=== PATIENT | female | born 1950 | race Caucasian/White ===

== ENCOUNTER 2021-09-24 13:31 | Outpatient (CLI) | payer MEDICARE, BC, SELFPAY | END 2021-09-24 13:32 | disposition home or self-care (01) | PROVIDERS: PCP Internal Medicine; Visit Provider Family Medicine | DX: M54.16 Radiculopathy, lumbar region (principal); M51.36 Other intervertebral disc degeneration, lumbar region | CPT/HCPCS: 62323; Q9966 ==

== ENCOUNTER 2022-12-23 10:52 | Outpatient (CLI) | payer MEDICARE, BC, SELFPAY | END 2022-12-23 10:53 | disposition home or self-care (01) | LOC: INJ CL 10:53 | PROVIDERS: PCP Internal Medicine; Visit Provider Family Medicine | DX: M17.11 Unilateral primary osteoarthritis, right knee (principal); M25.561 Pain in right knee | CPT/HCPCS: 64454 ==

== ENCOUNTER 2023-01-06 13:10 | Outpatient (CLI) | payer MEDICARE, BC, SELFPAY | END 2023-01-06 13:11 | disposition home or self-care (01) | LOC: INJ CL 13:10 | PROVIDERS: PCP Internal Medicine; Visit Provider Family Medicine | DX: M17.11 Unilateral primary osteoarthritis, right knee (principal); M25.561 Pain in right knee; G89.29 Other chronic pain | CPT/HCPCS: 64624; J2250; J3010 ==

== ENCOUNTER 2023-01-13 09:01 | Outpatient (CLI) | payer MEDICARE, BC, SELFPAY | END 2023-01-13 09:02 | disposition home or self-care (01) | LOC: INJ CL 09:01 | PROVIDERS: PCP Internal Medicine; Visit Provider Family Medicine | DX: M17.12 Unilateral primary osteoarthritis, left knee (principal); M25.562 Pain in left knee | CPT/HCPCS: 64454 ==

== ENCOUNTER 2023-01-16 10:00 | Outpatient (CLI) | payer MEDICARE, BC, SELFPAY | END 2023-01-16 10:01 | disposition home or self-care (01) | LOC: INJ CL 10:01 | PROVIDERS: PCP Internal Medicine; Visit Provider Family Medicine | DX: M17.12 Unilateral primary osteoarthritis, left knee (principal); G89.29 Other chronic pain; M25.562 Pain in left knee | CPT/HCPCS: 64624; J2250; J3010 ==

== ENCOUNTER 2023-03-13 14:13 | Outpatient (CLI) | payer MEDICARE, OTHER, SELFPAY | END 2023-03-13 14:14 | disposition home or self-care (01) | LOC: INJ CL 14:13 | PROVIDERS: PCP Internal Medicine; Visit Provider Family Medicine | DX: M54.16 Radiculopathy, lumbar region (principal); M51.36 Other intervertebral disc degeneration, lumbar region | CPT/HCPCS: 62323; J0702; Q9966 ==

== ENCOUNTER 2024-09-16 09:47 | Outpatient (CLI) | payer MEDICARE, OTHER, SELFPAY ==
--- NOTE | 2024-09-16 10:00 | CRLHL7_ITS ---
For Patients: As a result of the Century Cures Act, medical imaging exams and procedure reports are released immediately into your electronic medical record. You may view this report before your referring provider. If you have questions, please contact your health care provider. INDICATION: Endometrial carcinoma TECHNIQUE: CT chest, abdomen and pelvis acquired with 86 mL Isovue 370 IV contrast. COMPARISON: None. FINDINGS: CHEST: Cardiovascular structures: Heart size is normal. Thoracic aorta and main pulmonary artery are normal in caliber. Mediastinum and huma: No mass or adenopathy. Lungs and pleura: Posterior left lower lobe micronodule image 54 series 3. Lungs and pleural spaces are otherwise clear. No suspicious nodules, infiltrates, or effusions. Chest wall and axilla: No mass or adenopathy. Bones: No suspicious bone lesions. Unremarkable for age. ABDOMEN AND PELVIS: Liver: Unremarkable. Gallbladder and bile ducts: Unremarkable. Pancreas: Unremarkable. Spleen: Mildly enlarged at 14.3 cm. Adrenal glands: Unremarkable. Kidneys: Unremarkable. GI tract: Unremarkable. Vascular structures: Unremarkable. Lymph nodes: No adenopathy. Miscellaneous: Small amount of pelvic free fluid. Pelvic Organs: Hysterectomy. Bones: Chronic appearing L2 compression fracture. IMPRESSION: 1. A left lower lobe micronodule is technically indeterminate. 2. No other significant findings. Please note that all CT scans at this facility use dose modulation, iterative reconstruction, and/or weight-based dosing when appropriate to reduce radiation dose to as low as reasonably achievable. Dictated by Jaswant Bui MD @ 09/20/2024 3:22:40 PM (Electronically Signed)
[2024-09-16 10:21] LABS: Creatinine* 0.8 mg/dL (0.5-1.5); Estimated Glomerular Filt Rate 79 ml/min
== END 2024-09-16 09:48 | disposition home or self-care (01) ==
LOC: CT 09:49
PROVIDERS: PCP Internal Medicine; Visit Provider Obstetrics & Gynecology Gynecologic Oncology
DX: C54.1 Malignant neoplasm of endometrium (principal)
CPT/HCPCS: 36415; 71260; 74177; 82565; Q9967

== ENCOUNTER 2025-01-04 09:18 | Outpatient (CLI) | payer MEDICARE, OTHER, SELFPAY ==
[2025-01-04 09:53] LABS: Creatinine* 0.8 mg/dL (0.5-1.5); Estimated Glomerular Filt Rate 78 ml/min
--- NOTE | 2025-01-04 10:00 | CRLHL7_ITS ---
For Patients: As a result of the Century Cures Act, medical imaging exams and procedure reports are released immediately into your electronic medical record. You may view this report before your referring provider. If you have questions, please contact your health care provider. Indication: Endometrial carcinoma, history of hysterectomy and tubal ligation Technique: Volumetric multidetector CT images of the chest, abdomen, and pelvis were obtained after the administration of intravenous contrast. 83 cc Isovue 370 low osmolar intravenous contrast Comparison: CT chest, abdomen and pelvis September 16, 2024 FINDINGS: CHEST The thoracic inlet is unremarkable. The thyroid gland is within normal limits. The thoracic aorta is nonaneurysmal. There is no filling defect to suggest pulmonary embolus. There is no mediastinal, hilar, or axillary adenopathy. The trachea and bronchi are well aerated. There is minimal basilar atelectasis and/or parenchymal scar. No dense consolidation, effusion or pneumothorax. No evidence of new pulmonary nodule. Demonstration of a stable micronodule within the left lung base measuring 1.4 millimeters. The thoracic osseus structures are intact without fracture, lytic, or blastic lesion. The thoracic vertebral body heights demonstrate stable degenerative disc height loss and marginal osteophyte formation with minimal flowing anterior osteophytosis. ABDOMEN AND PELVIS The liver is grossly unremarkable with a subtle mildly nodular contour. No evidence of focal abnormality. Stable mild splenomegaly. Otherwise no evidence of abnormal enhancement. There are dependent calculi seen within the gallbladder. There is no intrahepatic or common ductal dilatation. The stomach and duodenum are grossly unremarkable. The pancreas is normal in enhancement without significant atrophy. The adrenal glands are unremarkable without evidence of adenoma. The kidneys are preserved and corticomedullary differentiation. There is no hydronephrosis or radiopaque calculus. 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 Moderate stool is seen throughout the colon without evidence of colonic inflammatory change. Minimal nonspecific fluid is seen within central small bowel loops. The appendix is unremarkable without significant inflammatory change. The abdominal aorta is nonaneurysmal without significant atherosclerotic disease. There is again seen prior hysterectomy. There is no pathologically enlarged epigastric, mesenteric, retroperitoneal, or pelvic sidewall lymph node. The anterior abdominal wall is grossly intact without significant hernias. There is no free air or free fluid. The visualized osseous structures are grossly intact without evidence of displaced fracture, lytic or blastic lesion. Stable vertebral plana deformity of the L2 vertebral body and anterolisthesis of L4 on L5. Otherwise no evidence of acute osseous abnormality, lytic or blastic lesion. Impression: 1. No acute cardiopulmonary abnormality. Stable micronodule in the left lung base. 2. No acute intra-abdominal abnormality is appreciated. 3. Stable postoperative change status post hysterectomy. Redemonstration of redundant appearing cecum with mobile cecal bascule. Mildly cirrhotic liver contour. Please note that all CT scans at this facility use dose modulation, iterative reconstruction, and/or weight-based dosing when appropriate to reduce radiation dose to as low as reasonably achievable. Dictated by Osiel Barboza MD @ 01/05/2025 10:09:39 AM (Electronically Signed)
== END 2025-01-04 09:19 | disposition home or self-care (01) ==
LOC: CT 09:19
PROVIDERS: PCP Internal Medicine; Visit Provider Obstetrics & Gynecology Gynecologic Oncology
DX: C54.1 Malignant neoplasm of endometrium (principal); R91.8 Other nonspecific abnormal finding of lung field; N95.0 Postmenopausal bleeding
CPT/HCPCS: 36415; 71260; 74177; 82565; Q9967

== ENCOUNTER 2025-02-14 09:31 | Outpatient (CLI) | payer MEDICARE, OTHER, SELFPAY | END 2025-02-14 09:32 | disposition home or self-care (01) | LOC: INJ CL 09:32 | PROVIDERS: PCP Internal Medicine; Visit Provider Family Medicine | DX: M17.11 Unilateral primary osteoarthritis, right knee (principal); M25.561 Pain in right knee | CPT/HCPCS: 64454 ==